=== PATIENT | female | born 1960 | race Caucasian/White ===

== ENCOUNTER 2022-12-23 13:05 | Outpatient (CLI) | payer MEDICARE, OTHER | END 2022-12-23 13:06 | disposition home or self-care (01) | LOC: BICCT 13:05 | PROVIDERS: ATTEND Family Medicine | DX: Z12.2 Encounter for screening for malignant neoplasm of respiratory organs (principal); F17.210 Nicotine dependence, cigarettes, uncomplicated | CPT/HCPCS: 71271 ==

== ENCOUNTER 2023-01-20 07:22 | Outpatient (CLI) | payer MEDICARE, MEDICAID | END 2023-01-20 07:23 | disposition home or self-care (01) | LOC: BICULT 07:22 | PROVIDERS: ATTEND Family Medicine | DX: R79.89 Other specified abnormal findings of blood chemistry (principal); R10.84 Generalized abdominal pain; K80.20 Calculus of gallbladder without cholecystitis without obstruction | CPT/HCPCS: 76700; 76856 ==

== ENCOUNTER 2024-02-23 12:46 | Outpatient (CLI) | payer MEDICARE, MEDICAID | END 2024-02-23 12:47 | disposition home or self-care (01) | LOC: BICCT 12:46 | PROVIDERS: ATTEND Family Medicine | DX: Z12.31 Encounter for screening mammogram for malignant neoplasm of breast (principal); Z12.2 Encounter for screening for malignant neoplasm of respiratory organs; Z78.0 Asymptomatic menopausal state; F17.210 Nicotine dependence, cigarettes, uncomplicated | CPT/HCPCS: 71271; 77063; 77067; 77080 ==